=== PATIENT | male | born 1980 | race African-American/Black ===

== ENCOUNTER → 2017-03-03 11:34 | Emergency (ER) | payer SELFPAY ==
[~2017-03-03 11:34] MED LIST: Ibuprofen TAB* 400 MG PO ONE; Ibuprofen TAB* 600 MG PO ONE; Ibuprofen TAB* 800 MG PO ONE
[2017-03-03 12:21] LABS: Urine Bilirubin Negative (Negative); Urine Glucose Negative (Negative); Urine Nitrite Negative (Negative)
[2017-03-03 12:41] LABS: Hematocrit 52 % (42-52); Hemoglobin 17.3 g/dl (14.0-18.0); Mean Corpuscular HGB Conc 33 g/dl (31-36); Mean Corpuscular Hemoglobin 30 pg (27-31); Mean Corpuscular Volume 89 fL (80-94); Mean Platelet Volume 9 um3 (7.4-10.4); Red Blood Count 5.86 10^6/ul (4.0-5.4); Red Cell Distribution Width 14 % (10.5-15); White Blood Count 8.4 10^3/ul (3.5-10.8)
[2017-03-03 12:53] LABS: ALT 16 U/L (7-52); AST 26 U/L (13-39); Albumin 4.5 g/dL (3.2-5.2); Alkaline Phosphatase 57 U/L (34-104); Anion Gap 8 mmol/L (2-11); BUN/Creatinine Ratio 11.3 (8-20); Blood Urea Nitrogen 12 mg/dL (6-24); CO2 Carbon Dioxide 23 mmol/L (22-32); Calcium 9.3 mg/dL (8.6-10.3); Chloride 104 mmol/L (101-111); EGFR African American 101.7 (>60); EGFR Non-African American 79.1 (>60); Globulin 3.2 g/dL (2-4); Glucose 100 mg/dL (70-100); Potassium 3.7 mmol/L (3.5-5.0); Sodium 135 mmol/L (133-145); Total Protein 7.7 g/dL (6.4-8.9)
[2017-03-03 13:14] LABS: Acetaminophen < 15 mcg/mL; Alcohol < 10 mg/dL (<10); Salicylate < 2.50 mg/dL (<30)
[2017-03-03 13:24] LABS: TSH (Thyroid Stimulating Horm) 0.83 mcIU/mL (0.34-5.60)
[2017-03-03 13:36] LABS: Benzodiazepine Urine Screen None Detected (None Detect)
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
--- NOTE | 2017-03-03 13:39 | RAD ---
INDICATION: Left hip injury. COMPARISON: There are no prior studies available for comparison. TECHNIQUE: An AP view of the pelvis and frontal and lateral views of the left hip were obtained. FINDINGS: The bones are in normal alignment. No fracture is seen. Joint spaces appear maintained. IMPRESSION: NO EVIDENCE FOR FRACTURE, IF THE PATIENT'S SYMPTOMS PERSIST RECOMMEND FOLLOW-UP IMAGING.
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
--- NOTE | 2017-03-03 20:15 | PN ---
Progress Note - Progress Note Note: Patient was signed out to me from iMke Lopez at shift change. Patient is on a MHU hold for an evaluation in the morning, 03/04/17. Patient does not have any complaints at this time.
[2017-03-04 06:56] VITALS: BP 139/79
--- NOTE | 2017-03-04 18:12 | ED ---
Alexis Barboza Benjamin, scribed for Buster Baker MD on 03/04/17 at 1806 . Progress - Progress Note Progress Note: Signout Pt from [facility]. Pt came to ED with right hip contusion and depression complaints. Pt was medically cleared and discharged by Mental Health unit. - Consult/PCP Time Called: 14:10 Course/Dx - Diagnoses Provider Diagnoses: Contusion of left hip, Persistent mood [affective] disorder, unspecified The documentation as recorded by the dorisibeAlexis Benjamin accurately reflects the service I personally performed and the decisions made by Samuel jaimes Drew, MD.
== END | disposition home or self-care (01) ==
LOC: ED 11:34
DX: S70.01XA Contusion of right hip, initial encounter (principal); F34.9 Persistent mood [affective] disorder, unspecified; V03.90XA Pedestrian on foot injured in collision with car, pick-up truck or van, unspecified whether traffic or nontraffic accident, initial encounter; Y92.9 Unspecified place or not applicable; Z88.0 Allergy status to penicillin; Z72.0 Tobacco use
CPT/HCPCS: 36415; 76705; 80053; 80307; 80320; 80329; 81003; 84443; 85025; 86703; 87389; 99284; A9270-GY; G0475; G0480

== ENCOUNTER 2017-10-18 10:14 | Emergency (ER) | payer MEDICAID ==
[2017-10-18 10:29] VITALS: BP 141/82
[2017-10-18] MEDS ORDERED: Famotidine IV* 10 MG/ML 2 ML (20 mg) IV SLOW PU ONE (11:29)
[2017-10-18] MEDS ORDERED: Ketorolac INJ* 30 MG/ML 1 ML VIAL IV PUSH ONE (11:29)
[2017-10-18] MEDS ORDERED: Al Hydrox/Mg Hydrox/Simet LIQ* 30 ML UDC PO ONE (11:29)
[2017-10-18] MEDS ORDERED: Ondansetron INJ* 2 MG/ML VIAL IV ONE (11:29)
[2017-10-18 11:46] LABS: ABS Basophils 0.1 10^3/ul (0-0.2); ABS Eosinophils 0.1 10^3/ul (0-0.6); ABS Monocytes 0.7 10^3/ul (0-0.8); ABS Neutrophils 5.8 10^3/ul (1.5-7.7); ABS Nucleated RBC 0 10^3/ul; Hematocrit 48 % (42-52); Hemoglobin 16.1 g/dl (14.0-18.0); Lymphocyte % 23.5 % (25-47); Mean Corpuscular HGB Conc 33 g/dl (31-36); Mean Corpuscular Hemoglobin 30 pg (27-31); Mean Corpuscular Volume 89 fL (80-94); Mean Platelet Volume 8 um3 (7.4-10.4); Nucleated Red Blood Cells % 0; Platelet Count 185 10^3/ul (150-450); Red Blood Count 5.42 10^6/ul (4.0-5.4); Red Cell Distribution Width 14 % (10.5-15); White Blood Count 8.7 10^3/ul (3.5-10.8)
[2017-10-18 11:57] LABS: EGFR Non-African American 110.4 (>60)
--- NOTE | 2017-10-18 12:10 | RAD ---
INDICATION: Left flank pain COMPARISON: None TECHNIQUE: Noncontrast axial source images were acquired from the level hemidiaphragms to the symphysis pubis as part of CT imaging for renal stone. Lung bases: The lung bases are clear. Liver: The liver is normal in size. Noncontrast imaging shows no evidence of a hepatic mass or ductal dilatation. Gallbladder: There are no calcified gallstones. There is no evidence of wall thickening or pericholecystic fluid.. Spleen: The spleen is normal in size. The noncontrast CT appearance is normal. Pancreas: Noncontrast imaging shows no pancreatic mass or ductal dilitation. Adrenal glands: No masses are identified. Kidneys/Bladder: There is no convincing evidence of urolithiasis. There is a tiny calcification in the minor pelvis on the left which is believed to be immediately adjacent to the distal left ureter and therefore is likely vascular.. Noncontrast imaging shows no evidence of a renal mass. The bladder is unremarkable.. Adenopathy: There is no evidence of intraperitoneal or retroperitoneal adenopathy. Evaluation is limited without oral contrast. Fluid collections: There are no free or localized fluid collections. Vessels: The aorta and iliac vessels are normal in caliber. There are no significant atherosclerotic changes. The IVC appears normal Pelvic organs: The prostate and seminal vesicles appear normal GI tract: Evaluation of the bowel is limited without oral contrast. The stomach, small bowel, and lower GI tract appear grossly normal. There are no obstructive findings. The appendix is visualized and appears normal. Soft tissues: No soft tissue abnormalities of the extraperitoneal abdomen or pelvis are identified. Osseous structures: There are no acute osseous findings. IMPRESSION: NO CONVINCING EVIDENCE OF UROLITHIASIS. NO OBSTRUCTION
[2017-10-18 12:28] LABS: Urine Appearance Clear; Urine Blood Negative (Negative); Urine Color Yellow; Urine Ketones Negative (Negative); Urine Protein Negative (Negative); Urine Specific Gravity 1.013 (1.010-1.030); Urine Urobilinogen Negative (Negative)
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
== END 2017-10-18 13:07 | disposition home or self-care (01) ==
LOC: ED 10:14
DX: R10.84 Generalized abdominal pain (principal); R11.10 Vomiting, unspecified; R19.7 Diarrhea, unspecified; F17.210 Nicotine dependence, cigarettes, uncomplicated
CPT/HCPCS: 36415; 74176; 80053; 81003; 83605; 83690; 85025; 86140; 96374; 96375; 99283; A9270-GY; J1885; J2405

== ENCOUNTER 2017-10-29 13:15 | Emergency (ER) | payer MEDICAID, OTHER ==
--- OUTSIDE RECORDS SUMMARY | 2017-10-29 14:09 | XMS REPORT ---
:1980 External Reference #:[id number] Author Organization [facility] Address [address] [address] Phone [phone] Care Team Providers Name Role Phone Cory Kaba DO Care Team Information Burial Agent Unavailable Devin Santiago MD Primary Care Physician Unavailable Payers Type Date Identification Numbers Payment Provider Subscriber Medicaid Policy Number: [id number] Medicaid Jay Antunez PayID: [id number] [address] [place] [address] Problems Description No Information Family History Date Family Member(s) Problem(s) Comments General Diabetes General Heart Disease General Hypertension General Stroke General Cancer Social History Type Date Description Comments Lives With Alone 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 [employer] ETOH Use Occasionally consumes alcohol Smoking Patient is a current smoker, smokes every day Allergies, Adverse Reactions, Alerts Date Description Reaction Status Severity Comments 04/17/2016 Penicillin active Medications Medication Date Status Form Strength Qnty SIG Indications Ordering Provider Famotidine 10/23/ Active Tablets 20mg 30tabs 1 by mouth Devin 2018 every day Vlad Santiago Pantoprazole 10/23/ Active Solution 40mg 1 by mouth [place] Sodium 2018 Rec every day Vlad Santiago Sucralfate 10/23/ Active Tablets 1gm 1 po before Devin 2018 meals and t Jack bedtime Vlad Hyoscyamine 10/23/ Active Tablets 0.125mg 30tabs 1 sublingual [place] Sulfate 2018 Sub every 6 Pachikara hours Vlad olivera needed for abdominal cramps Tramadol HCL 10/23/ Active Tablets 50mg 30tabs three times R10.9 [place] 2018 a day as Jack sellers M.D. Motrin Ib / Active Tablets 200mg as needed Unknown 0000 Claritin-D 12 00/ Hx Tablets ER 5-120mg 1 tab by Unknown Hour 0000 - 12HR mouth twice 10/22/ a day as 2018 needed Vital Signs Date Vital Result Comment 10/23/2017 Height 69 inches 5'9" Weight 179.50 lb Heart Rate 78 /min BP Systolic 140 mmHg BP Diastolic 78 mmHg Body Temperature 99.7 F O2 % BldC Oximetry 97 % BMI (Body Mass Index) 26.5 kg/m2 04/17/2016 Height 69 inches 5'9" Weight 178.00 lb Heart Rate 69 /min BP Systolic 118 mmHg BP Diastolic 72 mmHg BMI (Body Mass Index) 26.3 kg/m2 Results Test Date Test Result H/L Range Note Urinalysis Profile 10/18/2017 Urine Color Yellow Urine Appearance Clear Urine Specific [place] 1.013 1.010-1.030 Urine pH 5.0 5-9 Urine Urobilinogen Negative Negative Urine Ketones Negative Negative Urine Protein Negative Negative Urine Leukocytes Negative Negative Urine Blood Negative Negative Urine Nitrite Negative Negative Urine Bilirubin Negative Negative Urine Glucose Negative Negative CBC Auto Diff 10/18/2017 White Blood Count 8.7 10^3/uL 3.5-10.8 Red Blood Count 5.42 10^6/uL High 4.0-5.4 Hemoglobin 16.1 g/dL 14.0-18.0 Hematocrit 48 % 42-52 Mean Corpuscular Volume 89 fL 80-94 Mean Corpuscular Hemoglobin 30 pg 27-31 Mean Corpuscular HGB Conc 33 g/dL 31-36 Red Cell Distribution Width 14 % 10.5-15 Platelet Count 185 10^3/uL 150-450 Mean Platelet Volume 8 um3 7.4-10.4 Abs Neutrophils 5.8 10^3/uL 1.5-7.7 Abs Lymphocytes 2.0 10^3/uL 1.0-4.8 Abs Monocytes 0.7 10^3/uL 0-0.8 Abs Eosinophils 0.1 10^3/uL 0-0.6 Abs Basophils 0.1 10^3/uL 0-0.2 Abs Nucleated RBC 0 10^3/uL Granulocyte % 66.5 % 38-83 Lymphocyte % 23.5 % Low 25-47 Monocyte % 8.4 % 1-9 Eosinophil % 1.0 % 0-6 Basophil % 0.6 % 0-2 Nucleated Red Blood Cells % 0 Comp Metabolic Panel 10/18/2017 Sodium 135 mmol/L 133-145 Potassium 4.0 mmol/L 3.5-5.0 Chloride 105 mmol/L 101-111 Co2 Carbon Dioxide 23 mmol/L 22-32 Anion Gap 7 mmol/L 2-11 Glucose 95 mg/dL 70-100 Blood Urea Nitrogen 15 mg/dL 6-24 Creatinine 0.79 mg/dL 0.67-1.17 BUN/Creatinine Ratio 19.0 8-20 Calcium 9.3 mg/dL 8.6-10.3 Total Protein 7.0 g/dL 6.4-8.9 Albumin 4.3 g/dL 3.2-5.2 Globulin 2.7 g/dL 2-4 Albumin/Globulin Ratio 1.6 1-3 Total Bilirubin 0.60 mg/dL 0.2-1.0 Alkaline Phosphatase 47 U/L 34-104 Alt 16 U/L 7-52 Ast 17 U/L 13-39 Egfr Non- 110.4 >60 Egfr 141.9 >60 1 Laboratory test finding 10/18/2017 Lipase < 10 U/L Low 11.0-82.0 C Reactive Protein < 1.00 mg/L < 5.00 2 Lactic Acid 1.1 mmol/L 0.5-2.0 3 CBC Auto Diff 03/03/2017 White Blood Count 8.4 10^3/uL 3.5-10.8 Red Blood Count 5.86 10^6/uL High 4.0-5.4 Hemoglobin 17.3 g/dL 14.0-18.0 Hematocrit 52 % 42-52 Mean Corpuscular Volume 89 fL 80-94 Mean Corpuscular Hemoglobin 30 pg 27-31 Mean Corpuscular HGB Conc 33 g/dL 31-36 Red Cell Distribution Width 14 % 10.5-15 Platelet Count 179 10^3/uL 150-450 Mean Platelet Volume 9 um3 7.4-10.4 Abs Neutrophils 5.4 10^3/uL 1.5-7.7 Abs Lymphocytes 2.1 10^3/uL 1.0-4.8 Abs Monocytes 0.7 10^3/uL 0-0.8 Abs Eosinophils 0 10^3/uL 0-0.6 Abs Basophils 0.2 10^3/uL 0-0.2 Abs Nucleated RBC 0.01 10^3/uL Granulocyte % 65.0 % 38-83 Lymphocyte % 24.8 % Low 25-47 Monocyte % 8.1 % 1-9 Eosinophil % 0.3 % 0-6 Basophil % 1.8 % 0-2 Nucleated Red Blood Cells % 0.1 Urinalysis Profile 03/03/2017 Urine Color Yellow Urine Appearance Clear Urine Specific [place] 1.023 1.010-1.030 Urine pH 5.0 5-9 Urine Urobilinogen Negative Negative Urine Ketones 1+ Negative Urine Protein Negative Negative Urine Leukocytes Negative Negative Urine Blood Negative Negative Urine Nitrite Negative Negative Urine Bilirubin Negative Negative Urine Glucose Negative Negative Comp Metabolic Panel 03/03/2017 Sodium 135 mmol/L 133-145 Potassium 3.7 mmol/L 3.5-5.0 Chloride 104 mmol/L 101-111 Co2 Carbon Dioxide 23 mmol/L 22-32 Anion Gap 8 mmol/L 2-11 Glucose 100 mg/dL 70-100 Blood Urea Nitrogen 12 mg/dL 6-24 Creatinine 1.06 mg/dL 0.67-1.17 BUN/Creatinine Ratio 11.3 8-20 Calcium 9.3 mg/dL 8.6-10.3 Total Protein 7.7 g/dL 6.4-8.9 Albumin 4.5 g/dL 3.2-5.2 Globulin 3.2 g/dL 2-4 Albumin/Globulin Ratio 1.4 1-3 Total Bilirubin 1.10 mg/dL High 0.2-1.0 Alkaline Phosphatase 57 U/L 34-104 Alt 16 U/L 7-52 Ast 26 U/L 13-39 Egfr Non- 79.1 >60 Egfr 101.7 >60 4 Laboratory test finding 03/03/2017 Acetaminophen < 15 g/mL 5 Alcohol < 10 mg/dL <10 Salicylate < 2.50 mg/dL <30 TSH (Thyroid Stim Horm) 0.83 mcIU/mL 0.34-5.60 Urine Drug SCR ED 03/03/2017 Amphetamine Ur Screen None Detected None Detect & [facility] Barbiturates Urine Screen Presumptive Posi <SEE NOTE> None Detect 6 Benzodiazepine Urine Screen None Detected None Detect Urine Cannabinoids Screen Presumptive Posi <SEE NOTE> None Detect 7 Urine Cocaine Screen Presumptive Posi <SEE NOTE> None Detect 8 Urine Opiates Screen None Detected None Detect Urine Phencyclidine Screen None Detected None Detect 9 1 Because ethnic data is not always readily available, this report includes an eGFR for both -Americans and non- Americans. The National Kidney Disease Education Program (NKDEP) does not endorse the use of the MDRD equation for patients that are not between the ages of 18 and 70, are , have extremes of body size, muscle mass, or nutritional status, or are non- or non-. According to the National Kidney Foundation, irrespective of diagnosis, the stage of the disease is based on the level of kidney function: Stage Description GFR(mL/min/1.73 m(2)) 1 Kidney damage with normal or decreased GFR 90 2 Kidney damage with mild decrease in GFR 60-89 3 Moderate decrease in GFR 30-59 4 Severe decrease in GFR 15-29 5 Kidney failure <15 (or dialysis) 2 Acute inflammation: >10.00 3 [facility] Severe Sepsis and Septic Shock Management Bundle Measure requires all lactic acids initially measuring >2.0 mmol/L be repeated. 4 Because ethnic data is not always readily available, this report includes an eGFR for both -Americans and non- Americans. The National Kidney Disease Education Program (NKDEP) does not endorse the use of the MDRD equation for patients that are not between the ages of 18 and 70, are , have extremes of body size, muscle mass, or nutritional status, or are non- or non-. According to the National Kidney Foundation, irrespective of diagnosis, the stage of the disease is based on the level of kidney function: Stage Description GFR(mL/min/1.73 m(2)) 1 Kidney damage with normal or decreased GFR 90 2 Kidney damage with mild decrease in GFR 60-89 3 Moderate decrease in GFR 30-59 4 Severe decrease in GFR 15-29 5 Kidney failure <15 (or dialysis) 5 Therapeutic concentration: <50 ug/mL Toxic concentration: >120 ug/mL 6 Presumptive Positive Presumptive positive results are unconfirmed. 7 Presumptive Positive Presumptive positive results are unconfirmed. 8 Presumptive Positive Presumptive positive results are unconfirmed. 9 The urine specimen was tested at the listed cutoffs: Drug class test level (ng/mL) Amphetamines 500 Barbiturates 200 Benzodiazepine metabolites 200 Cocaine metabolites 150 Cannabinoids 50 Opiates 300 Pcp 25 Specimen was received without chain of custody. Results should be used for medical purposes only. Procedures Date CPT Code Description Status 03/24/2005 86222 EKG, Interpretation Only Completed Encounters Type Date Location Provider CPT E/M Dx Office Visit 04/17/2016 10:00a [facility] [place] [address] M25.532 C.M.A. G56.02 Plan of Care Future Appointment(s):10/31/2017 3:00 pm - Devin Santiago M.D. at [facility] - [address]/23/2017 - Devin Santiago M.D.R10.9 Unspecified abdominal painNew Medication:Tramadol HCL 50 mgNew Xrays:CT Abd/Pel W/WoComments:? unerupted shinglesReferral:Víctor Garsia MD, GastroenterologyFollow up:1 week
--- OUTSIDE RECORDS SUMMARY | 2017-10-29 14:10 | XMS REPORT ---
:1980 External Reference #:[id number] Author Organization [facility] [employer] Address [address] [address] Phone [phone] Care Team Providers Name Role Phone Cory Kaba DO Care Team Information Insulation Nozzleman Unavailable Devin Santiago MD Primary Care Physician Unavailable Payers Type Date Identification Numbers Payment Provider Subscriber Medicaid Policy Number: [id number] Medicaid Jay Antunez PayID: [id number] [address] [place] [address] Problems Description No Information Family History Date Family Member(s) Problem(s) Comments General Diabetes General Heart Disease General Hypertension General Stroke General Cancer Social History Type Date Description Comments Lives With Alone 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 Use Occasionally consumes alcohol Smoking Patient is a current smoker, smokes every day Allergies, Adverse Reactions, Alerts Date Description Reaction Status Severity Comments 04/17/2016 Penicillin active Medications Medication Date Status Form Strength Qnty SIG Indications Ordering Provider Famotidine 10/23/ Active Tablets 20mg 30tabs 1 by mouth Devin 2018 every day Vlad Santiago Pantoprazole 10/23/ Active Solution 40mg 1 by mouth [place] Sodium 2018 Rec every day Vlad Santiago Sucralfate 10/23/ Active Tablets 1gm 1 po before Devin 2018 meals and t Jack bedtime Vlad Hyoscyamine 10/23/ Active Tablets 0.125mg 30tabs 1 sublingual [place] Sulfate 2018 Sub every 6 Pachikara hours Vlad olivera needed for abdominal cramps Tramadol HCL 10/23/ Active Tablets 50mg 30tabs three times R10.9 [place] 2018 a day as Jack sellers M.D. [...] Color Yellow Urine Appearance Clear Urine Specific [place] 1.013 1.010-1.030 Urine pH 5.0 5-9 Urine [...] Color Yellow Urine Appearance Clear Urine Specific [place] 1.023 1.010-1.030 Urine pH 5.0 5-9 Urine [...] (or dialysis) 2 Acute inflammation: >10.00 3 [facility] Severe Sepsis and Septic Shock Management [...] Procedures Date CPT Code Description Status 03/24/2005 86047 EKG, Interpretation Only Completed Encounters Type Date Location Provider CPT E/M Dx Office Visit 04/17/2016 10:00a [facility] [place] [address] M25.532 C.M.A. G56.02 Plan of Care 10/23/2017 - Devin Santiago M.D.R10.9 Unspecified abdominal painNew Medication:Tramadol HCL 50 mgNew Xrays:CT Abd/Pel W/WoComments:? unerupted shinglesReferral:Víctor Garsia MD, GastroenterologyFollow up:1 week
[2017-10-29] MEDS ORDERED: Morphine INJ* 4 MG/ML 1 ML CARPUJECT IV ONE ×2 (17:05→19:53)
[2017-10-29 17:37] LABS: ABS Basophils 0.1 10^3/ul (0-0.2); ABS Eosinophils 0.1 10^3/ul (0-0.6); ABS Lymphocytes 2.6 10^3/ul (1.0-4.8); ABS Monocytes 0.7 10^3/ul (0-0.8); ABS Neutrophils 4.8 10^3/ul (1.5-7.7); ABS Nucleated RBC 0 10^3/ul; Eosinophil % 1.2 % (0-6); Hematocrit 46 % (42-52); Hemoglobin 15.5 g/dl (14.0-18.0); Lymphocyte % 30.9 % (25-47); Mean Corpuscular HGB Conc 34 g/dl (31-36); Mean Corpuscular Hemoglobin 30 pg (27-31); Mean Corpuscular Volume 89 fL (80-94); Mean Platelet Volume 8 um3 (7.4-10.4); Nucleated Red Blood Cells % 0.1; Platelet Count 196 10^3/ul (150-450); Red Blood Count 5.13 10^6/ul (4.0-5.4); Red Cell Distribution Width 14 % (10.5-15); White Blood Count 8.2 10^3/ul (3.5-10.8)
[2017-10-29 17:53] LABS: INR 0.87 (0.77-1.02)
[2017-10-29 19:22] LABS: Urine Appearance Clear; Urine Blood Negative (Negative); Urine Color Yellow; Urine Ketones Trace (Negative); Urine Protein 1+(30 mg/dL) (Negative); Urine Specific Gravity 1.027 (1.010-1.030); Urine Urobilinogen Positive (Negative)
[2017-10-29] MEDS ORDERED: Morphine INJ* 4 MG/ML 1 ML CARPUJECT IM ONE (19:52)
[2017-10-29] MEDS ORDERED: Famotidine TAB* 20 MG PO ONE (19:54)
[2017-10-29] MEDS ORDERED: Al Hydrox/Mg Hydrox/Simet LIQ* 30 ML UDC PO ONE (19:54)
[2017-10-29] MEDS ORDERED: Sucralfate TAB* 1 GM PO ONE (19:55)
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
[2017-10-29 21:25] VITALS: BP 126/81
== END 2017-10-29 21:24 | disposition home or self-care (01) ==
LOC: ED 13:15
DX: K29.70 Gastritis, unspecified, without bleeding (principal); Z88.0 Allergy status to penicillin; F17.200 Nicotine dependence, unspecified, uncomplicated
CPT/HCPCS: 36415; 80053; 81003; 81015; 83690; 83735; 85025; 85610; 85730; 86850; 86900; 86901; 96374; 96375; 96376; 99284; A9270-GY; J2270

== ENCOUNTER 2017-12-24 07:37 | Emergency (ER) | payer SELFPAY ==
[2017-12-24 07:58] VITALS: BP 138/90
[2017-12-24] MEDS ORDERED: Fluorescein Sod TOPICAL 0.6* 0.6 MG TEST OPHTHALMIC ONE (08:13)
[2017-12-24] MEDS ORDERED: Tetracaine 0.5% OPTH.SOL 4 ML* 1 DROP BTL LEFT EYE ONE (08:13)
[2017-12-24] MEDS ORDERED: BSS OPTH.SOL* BTL OPHTHALMIC ONE (08:14)
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
[2017-12-24] MEDS ORDERED: Ciprofloxacin 0.3% OPTH.SOL* 2.5 ML BTL LEFT EYE ONE (08:42)
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
== END 2017-12-24 09:14 | disposition home or self-care (01) ==
LOC: UCEAST 07:37
DX: S05.02XA Injury of conjunctiva and corneal abrasion without foreign body, left eye, initial encounter (principal); S06.0X0A Concussion without loss of consciousness, initial encounter; W50.0XXA Accidental hit or strike by another person, initial encounter; Y93.9 Activity, unspecified; Y92.9 Unspecified place or not applicable; Z88.0 Allergy status to penicillin; F17.210 Nicotine dependence, cigarettes, uncomplicated
CPT/HCPCS: 70486; 99213; A9270-GY; G0463

== ENCOUNTER 2019-02-10 17:26 | Emergency (ER) | payer MEDICAID, OTHER ==
[2019-02-10] MEDS ORDERED: oxyCODONE/Acetamin 5/325 MG* TAB PO ONE (18:54)
[2019-02-10] MEDS ORDERED: NS 0.9% 1000 ML** 2,000 ML IV ONE (18:54)
[2019-02-10] MEDS ORDERED: Ibuprofen TAB* 400 MG PO ONE (18:54)
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
[2019-02-10 19:23] LABS: ABS Basophils 0 10^3/ul (0-0.2); ABS Eosinophils 0 10^3/ul (0-0.6); ABS Lymphocytes 1.3 10^3/ul (1.0-4.8); ABS Monocytes 1.1 10^3/ul (0-0.8); ABS Neutrophils 14.1 10^3/ul (1.5-7.7); ABS Nucleated RBC 0 10^3/ul; Eosinophil % 0.2 %; Hematocrit 48 % (36-46); Hemoglobin 16.3 g/dL (14.0-18.0); Lymphocyte % 7.8 %; Mean Corpuscular HGB Conc 34 g/dL (31-36); Mean Corpuscular Hemoglobin 31 pg (27-31); Mean Corpuscular Volume 90 fL (80-94); Mean Platelet Volume 8.2 fL (7.4-10.4); Nucleated Red Blood Cells % 0; Platelet Count 199 10^3/uL (150-450); Red Blood Count 5.33 10^6 /uL (4.18-5.48); Red Cell Distribution Width 14 % (10.5-15); White Blood Count 16.5 10^3/uL (3.5-10.8)
[2019-02-10 19:34] LABS: ALT 18 U/L (7-52); AST 36 U/L (13-39); Albumin 4.3 g/dL (3.2-5.2); Albumin/Globulin Ratio 1.6 (1-3); Alkaline Phosphatase 61 U/L (34-104); Anion Gap 9 mmol/L (2-11); BUN/Creatinine Ratio 13.8 (8-20); Blood Urea Nitrogen 15 mg/dL (6-24); CO2 Carbon Dioxide 21 mmol/L (22-32); Calcium 9.1 mg/dL (8.6-10.3); Chloride 110 mmol/L (101-111); EGFR African American 91.6 (>60); EGFR Non-African American 75.7 (>60); Globulin 2.7 g/dL (2-4); Glucose 115 mg/dL (70-100); Potassium 3.7 mmol/L (3.5-5.0); Sodium 140 mmol/L (135-145)
[2019-02-10 19:41] LABS: Alcohol < 10 mg/dL (<10)
[2019-02-10 19:55] LABS: Urine Appearance Clear; Urine Bacteria Absent (Absent); Urine Bilirubin Negative (Negative); Urine Blood 2+ (Negative); Urine Color Yellow; Urine Glucose Negative (Negative); Urine Ketones Trace (Negative); Urine Nitrite Negative (Negative); Urine Protein 2+(100 mg/dL) (Negative); Urine Red Blood Cell 1+(3-5/hpf) (Absent); Urine Specific Gravity 1.024 (1.010-1.030); Urine Urobilinogen Negative (Negative); Urine White Blood Cell Trace(0-5/hpf) (Absent)
[2019-02-10] MEDS ORDERED: Iohexol 300* (CONTRAST) 10 ML SDV IV ONE (19:56)
[2019-02-10] MEDS ORDERED: oxyCODONE TAB* 5 MG TAB PO ONE (22:19)
[2019-02-10 22:32] VITALS: BP 111/84
== END 2019-02-10 22:32 | disposition home or self-care (01) ==
LOC: ED 17:26
DX: S00.03XA Contusion of scalp, initial encounter (principal); S20.219A Contusion of unspecified front wall of thorax, initial encounter; S30.1XXA Contusion of abdominal wall, initial encounter; S06.0X1A Concussion with loss of consciousness of 30 minutes or less, initial encounter; Y04.2XXA Assault by strike against or bumped into by another person, initial encounter; R40.2412 Glasgow coma scale score 13-15, at arrival to emergency department; F17.210 Nicotine dependence, cigarettes, uncomplicated; Z88.0 Allergy status to penicillin; K57.90 Diverticulosis of intestine, part unspecified, without perforation or abscess without bleeding
CPT/HCPCS: 36415; 70450; 70486; 71260; 74177; 80053; 80320; 81003; 81015; 85025; 87086; 96360; 96361; 99283; A9270-GY; G0480; Q9967

== ENCOUNTER 2019-08-24 09:35 | Emergency (ER) | payer OTHER ==
[2019-08-24] MEDS ORDERED: Tetracaine 0.5% OPTH.SOL 4 ML* 1 DROP BTL LEFT EYE ONE (10:33)
[2019-08-24] MEDS ORDERED: Fluorescein Sodium TOPICAL* 1 MG TEST STRIP OPHTHALMIC ONE (10:33)
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
[2019-08-24 11:18] VITALS: BP 124/82
== END 2019-08-24 11:16 | disposition home or self-care (01) ==
LOC: ED 09:35
DX: S05.02XA Injury of conjunctiva and corneal abrasion without foreign body, left eye, initial encounter (principal); J20.9 Acute bronchitis, unspecified; F17.210 Nicotine dependence, cigarettes, uncomplicated; X58.XXXA Exposure to other specified factors, initial encounter; Z88.0 Allergy status to penicillin
CPT/HCPCS: 99282; A9270-GY

== ENCOUNTER 2019-10-06 14:47 | Emergency (ER) | payer OTHER ==
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
[2019-10-06 17:21] VITALS: BP 121/81
== END 2019-10-06 17:32 | disposition home or self-care (01) ==
LOC: ED 14:47
DX: M77.52 Other enthesopathy of left foot and ankle (principal); M76.62 Achilles tendinitis, left leg; M72.2 Plantar fascial fibromatosis; M25.572 Pain in left ankle and joints of left foot; F17.210 Nicotine dependence, cigarettes, uncomplicated
CPT/HCPCS: 99282

== ENCOUNTER 2019-11-14 08:30 | Emergency (ER) | payer OTHER ==
[2019-11-14] MEDS ORDERED: Ondansetron INJ* 2 MG/ML VIAL IV ONE (08:52)
[2019-11-14] MEDS ORDERED: Ketorolac INJ* 30 MG/ML 1 ML VIAL IV ONE (08:52)
[2019-11-14 09:11] LABS: ABS Eosinophils 0.1 10^3/ul (0-0.6); ABS Lymphocytes 1.8 10^3/ul (1.0-4.8); ABS Monocytes 0.6 10^3/ul (0-0.8); ABS Neutrophils 4.4 10^3/ul (1.5-7.7); Eosinophil % 0.8 %; Hematocrit 47 % (42-52); Hemoglobin 15.8 g/dL (14.0-18.0); Lymphocyte % 26.4 %; Mean Corpuscular HGB Conc 33 g/dL (31-36); Mean Corpuscular Hemoglobin 30 pg (27-31); Mean Corpuscular Volume 88 fL (80-94); Mean Platelet Volume 8.1 fL (7.4-10.4); Nucleated Red Blood Cells % 0.1; Platelet Count 218 10^3/uL (150-450); Red Blood Count 5.37 10^6 /uL (4.18-5.48); Red Cell Distribution Width 13 % (10-15)
[2019-11-14] MEDS ORDERED: Ondansetron ODT TAB* 4 MG SL ONE (09:23)
[2019-11-14] MEDS ORDERED: Ketorolac *IM* INJ* 60 MG/2 ML VIAL IM ONE (09:23)
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
[2019-11-14 09:29] LABS: ALT 16 U/L (7-52); AST 18 U/L (13-39); Albumin 4.5 g/dL (3.2-5.2); Alkaline Phosphatase 66 U/L (34-104); Anion Gap 7 mmol/L (2-11); BUN/Creatinine Ratio 14.7 (8-20); Blood Urea Nitrogen 15 mg/dL (6-24); C Reactive Protein < 1.00 mg/L (<8.01); CO2 Carbon Dioxide 24 mmol/L (22-32); Calcium 9.4 mg/dL (8.6-10.3); Chloride 106 mmol/L (101-111); EGFR African American 98.4 (>60); EGFR Non-African American 81.3 (>60); Globulin 2.3 g/dL (2-4); Glucose 89 mg/dL (70-100); Sodium 137 mmol/L (135-145); Total Protein 6.8 g/dL (6.4-8.9)
[2019-11-14 10:16] VITALS: BP 135/85
== END 2019-11-14 10:15 | disposition home or self-care (01) ==
LOC: ED 08:30
DX: N20.0 Calculus of kidney (principal); F17.210 Nicotine dependence, cigarettes, uncomplicated; Z88.0 Allergy status to penicillin
CPT/HCPCS: 36415; 74176; 80053; 83605; 83690; 85025; 86140; 96372; 99282; A9270-GY; J1885